=== PATIENT | female | born 1990 | race Caucasian/White ===

== ENCOUNTER 2018-05-04 17:15 | Observation (INO) | payer MEDICAID, OTHER ==
--- NOTE | 2018-05-04 17:50 | C.PDOC ---
History Of Present Illness 28 y/o female, with history of diabetes and ari syndrome, presents to ED complaining of pain to her right perirectal area for the last few days that she states is getting worse. Patient denies any fever, chills, abdominal pain, diarrhea, or trauma. Time Seen by Provider: 05/04/18 17:48 Chief Complaint (Nursing): Abnormal Skin Integrity History Per: Patient History/Exam Limitations: no limitations Onset/Duration Of Symptoms: Days Current Symptoms Are (Timing): Still Present Past Medical History Reviewed: Historical Data, Nursing Documentation, Vital Signs Vital Signs: Last Vital Signs Temp 98.9 F 05/04/18 17:26 Pulse 108 H 05/04/18 17:26 Resp 18 05/04/18 17:26 BP 118/80 05/04/18 17:26 Pulse Ox 98 05/04/18 17:26 - Medical History PMH: Gowrie's Syndrome, Diabetes, Osteoporosis Family History: States: No Known Family Hx - Social History Hx Alcohol Use: Yes Hx Substance Use: No - Immunization History Hx Tetanus Toxoid Vaccination: No Hx Influenza Vaccination: No Hx Pneumococcal Vaccination: No Review Of Systems Constitutional: Negative for: Fever, Chills Gastrointestinal: Negative for: Vomiting, Abdominal Pain, Diarrhea Physical Exam - Physical Exam Appears: Non-toxic, No Acute Distress Skin: Warm, Dry, No Rash, Other (bilateral inguinal and medial thigh area/perine al area erythematous,. warm, irritated appearing. fluctuant abscess right side. ) Head: Atraumatic, Normacephalic Eye(s): bilateral: Normal Inspection Cardiovascular: Rhythm Regular, No Murmur Respiratory: Normal Breath Sounds, No Rales, No Rhonchi, No Wheezing Gastrointestinal/Abdominal: Soft, No Tenderness Rectal: Normal Exam (no internal rectal pain or swelling noted. ), Tenderness (to right proximal perineal area with exquisite tenderness and fluctuance. ), Other (Erythematous perianal inner thigh region and distal to labia on both sides, warm, slight peeling, irritated-appearing skin) Extremity: Bilateral: Atraumatic, Normal Color And Temperature, Normal ROM Neurological/Psych: Oriented x3, Normal Speech, Normal Motor, Normal Sensation, Normal Reflexes Gait: Steady ED Course And Treatment - Laboratory Results Result Diagrams: 05/04/18 19:17 05/04/18 19:17 O2 Sat by Pulse Oximetry: 98 (RA) Pulse Ox Interpretation: Normal Medical Decision Making Medical Decision Making: Plan: --Bloodwork --Urinalysis --IV fluids --Novolin --Novolog --Toradol --Zosyn Impression: 28 y/o Female, with diabetes, with cellulitis and perirectal abscess. Discussed with Dr. Earl who agreed with admission and will consult PMD. [address] Almeida aware of consult. will see patient. Disposition Discussed With Dr.: Kayli Earl Doctor Will See Patient In The: Hospital - Disposition Disposition: HOSPITALIZED Disposition Time: 20:00 Condition: GOOD - Clinical Impression Clinical Impression: Uncontrolled diabetes mellitus, Arlette-rectal abscess, Cellulitis of perianal region - PA / REFRIGERATION SYSTEMS INSTALLER / Resident Statement MD/DO has reviewed & agrees with the documentation as recorded. - Scribe Statement The provider has reviewed the documentation as recorded by the Winibissac Ayala All medical record entries made by the Winibissac were at my direction and personally dictated by me. I have reviewed the chart and agree that the record accurately reflects my personal performance of the history, physical exam, medical decision making, and the department course for this patient. I have also personally directed, reviewed, and agree with the discharge instructions and disposition.
[2018-05-04 19:22] LABS: BASO # 0.2 K/uL (0.0-0.2); BASO % 1.1 % (0.0-2.0); EOS # 0.1 K/uL (0.0-0.7); EOS % 0.7 % (0.0-4.0); HEMOGLOBIN 14.9 g/dL (11.0-16.0); LYMPH # 3.1 K/uL (1.0-4.3); LYMPH % 19.8 % (20.0-40.0); MEAN CELL VOLUME 89.9 fL (81.0-99.0); MEAN CORPUSCULAR HGB CONC 33.4 g/dL (33.0-37.0); MEAN PLATELET VOLUME 10.5 fL (7.2-11.7); MONO # 0.9 K/uL (0.0-0.8); MONO % 5.9 % (0.0-10.0); NEUT # 11.4 K/uL (1.8-7.0); NEUT % 72.5 % (50.0-75.0); NRBC % 0.1 % (0.0-2.0); RBC 4.98 Mil/uL (3.80-5.20); RED CELL DISTRIBUTION WIDTH 12.6 % (11.5-14.5); WHITE BLOOD COUNT 15.7 K/uL (4.8-10.8)
[2018-05-04 19:27] LABS: SQUAMOUS EPITHIAL 12 /hpf (0-5); URINE BILIRUBIN NEGATIVE (NEGATIVE); URINE BLOOD NEGATIVE (NEGATIVE); URINE CLARITY Clear (Clear); URINE COLOR Yellow (YELLOW); URINE GLUCOSE (UA) 3+ mg/dL (Normal); URINE LEUKOCYTE ESTERASE 1+ Leu/uL (Negative); URINE PROTEIN NEGATIVE (NEGATIVE); URINE UROBILINOGEN NORMAL mg/dL (0.2-1.0)
[2018-05-04 19:34] LABS: ALB/GLOB RATIO 1.1 (1.0-2.1); ALBUMIN 4.1 g/dL (3.5-5.0); ALT/SGPT 67 U/L (9-52); AST/SGOT 54 U/L (14-36); BLOOD UREA NITROGEN 24 mg/dL (7-17); CALCIUM 9.4 mg/dl (8.6-10.4); GFR NON-AFRICAN AMERICAN > 60
[2018-05-04] MEDS ORDERED: (Novolin R) Insulin Human Regular 100 units/ml vial SC ONE (19:53)
[2018-05-04] MEDS ORDERED: Sodium Chloride 0.9% 1,000 ML IV ONE (19:54)
[2018-05-04] MEDS ORDERED: Piperacillin/Tazobact 3.375 GM in Sodium Chloride 100 ML IVPB STA (19:54)
[2018-05-04] MEDS ORDERED: (Novolin R) Insulin Human Regular 100 units/ml vial ONE (20:25)
[2018-05-04] MEDS ORDERED: Piperacillin/Tazobact 3.375 gm 100 ML IVPB ONE (20:26)
[2018-05-04] MEDS: Sodium Chloride 0.45% 1,000 ML IV SCH (21:00)
--- NOTE | 2018-05-04 21:50 | CP.PCM.CON ---
History of Present Illness - History of Present Illness History of Present Illness: Surgery consult note for Dr. 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 Patient states she thought it was just a rash but it got worse and was associated with pain with bowel movements. Her boyfriend saw it, found it exquisitely tender. Pt denies any blood in her stool, fevers, chills, diarrhea, constipation, abdominal pain, chest pain, nausea, vomiting. Patient reports she has chronic vaginal discharge and told it is yeast by her maintenance helper utility engineer, and admits to history of vaginal warts in the past that resolved with treatment as well as a "boil" on her buttock that resolved with a cream from her [place] attorney. Patient also reports difficulty controlling her blood glucose, and her sugar is 397 in the ER. Denies any family or personal history of IBD PMH: DM, cushings, vaginal warts, buttock boil, yeast infections PSH: , pituitary surgery, BL adrenalectomies ALL: promethazine Social: denies all substance history Review of Systems - Review of Systems All systems: reviewed and no additional remarkable complaints except (as per HPI) Past Patient History - Infectious Disease Hx of Infectious Diseases: None - Past Medical History & Family History Past Medical History?: Yes Past Family History: Reviewed and not pertinent - Past Social History Smoking Status: Never Smoked - CARDIAC Hx Cardiac Disorders: No - PULMONARY Hx Respiratory Disorders: No - ENDOCRINE/METABOLIC Hx Endocrine Disorders: Yes Hx Diabetes Mellitus Type 2: Yes Other/Comment: PITUITARY GLAND TUMOR - MUSCULOSKELETAL/RHEUMATOLOGICAL Hx Osteoporosis: Yes - PSYCHIATRIC Hx Substance Use: No - SURGICAL HISTORY Hx Surgeries: Yes Hx Section: Yes Other/Comment: Adrenal glands removed - ANESTHESIA Hx Anesthesia: Yes Hx Anesthesia Reactions: No Meds Allergies/Adverse Reactions: Allergies Allergy/AdvReac Type Severity Reaction Status Date / Time promethazine HCl Allergy ANAPHYLAXIS Verified 05/04/18 17:29 [From Phenergan] - Medications Medications: Current Medications Enoxaparin Sodium (Lovenox) 40 mg SC DAILY CHARLINE Sodium Chloride (Sodium Chloride 0.45%) 1,000 mls @ 100 mls/hr IV .Q10H CHARLINE Stop: 05/06/18 01:59 Piperacillin Sod/Tazobactam Sod (Zosyn 3.375 Gm Iv Premix) 3.375 gm in 50 mls @ 100 mls/hr IVPB Q8H CHARLINE; Protocol Vancomycin HCl 1 gm/ Sodium (Chloride) 250 mls @ 166.7 mls/hr IVPB Q24H CHARLINE; Protocol Insulin Aspart (Novolog) 0 unit SC ACHS CHARLINE; Protocol Insulin Aspart (Novolog) 5 unit SC AC CHARLINE Insulin Detemir (Levemir) 10 unit SC HS CHARLINE Physical Exam - Constitutional Appears: Well, Non-toxic, No Acute Distress - Head Exam Head Exam: ATRAUMATIC, NORMOCEPHALIC - Eye Exam Eye Exam: Normal appearance. absent: Conjunctival injection, Scleral icterus - ENT Exam ENT Exam: Mucous Membranes Moist, Normal Oropharynx - Respiratory Exam Respiratory Exam: NORMAL BREATHING PATTERN. absent: Accessory Muscle Use, Respiratory Distress - Cardiovascular Exam Cardiovascular Exam: RRR - GI/Abdominal Exam GI & Abdominal Exam: Soft. absent: Distended, Tenderness - Rectal Exam Rectal Exam: absent: Bloody Stool, Hemorrhoids, Fecal Impaction Additional comments: Area of swelling and erythema to the right of the anus, approximately 4cm across with underlying fluctuance, tender to palpation rectal tone intact, no internal swelling or tenderness to palpation - Extremities Exam Extremities exam: Positive for: pedal pulses present. Negative for: calf tenderness, pedal edema - Neurological Exam Neurological exam: Alert, Oriented x3 - Psychiatric Exam Psychiatric exam: Normal Affect, Normal Mood - Skin Skin Exam: Dry, Normal Color, Warm Results - Vital Signs Recent Vital Signs: Last Vital Signs Temp 98.3 F 05/04/18 21:27 Pulse 86 05/04/18 21:27 Resp 18 05/04/18 21:27 BP 108/72 05/04/18 21:27 Pulse Ox 99 05/04/18 21:27 - Labs Result Diagrams: 05/04/18 19:17 05/04/18 19:17 Labs: Laboratory Results - last 24 hr 05/04/18 05/04/18 05/04/18 19:17 19:17 19:17 WBC 15.7 H RBC 4.98 Hgb 14.9 Hct 44.7 MCV 89.9 MCH 30.0 MCHC 33.4 RDW 12.6 Plt Count 313 MPV 10.5 Neut % (Auto) 72.5 Lymph % (Auto) 19.8 L [place] % (Auto) 5.9 Eos % (Auto) 0.7 Baso % (Auto) 1.1 Neut # (Auto) 11.4 H Lymph # (Auto) 3.1 [place] # (Auto) 0.9 H Eos # (Auto) 0.1 Baso # (Auto) 0.2 Sodium 136 Potassium 4.6 Chloride 94 L Carbon Dioxide 26 Anion Gap 20 BUN 24 H Creatinine 0.7 Est GFR ( Amer) > 60 Est GFR (Non-Af Amer) > 60 Random Glucose 398 H Calcium 9.4 Total Bilirubin 0.6 AST 54 H ALT 67 H Alkaline Phosphatase 171 H Total Protein 7.8 Albumin 4.1 Globulin 3.6 Albumin/Globulin Ratio 1.1 Urine Color Yellow Urine Clarity Clear Urine pH 5.0 Ur Specific [place] 1.029 Urine Protein Negative Urine Glucose (UA) 3+ H Urine Ketones Trace Urine Blood Negative Urine Nitrate Negative Urine Bilirubin Negative Urine Urobilinogen Normal Ur Leukocyte Esterase 1+ H Urine WBC (Auto) 13 H Urine RBC (Auto) 1 Ur Squamous Epith Cells 12 H Assessment & Plan - Assessment and Plan (Free Text) Assessment: 28F with abscess of the perineum Plan: OR tomorrow AM for fidel-anal abscess incision and drainage IV antibiotics NPO after midnight PRN pain medication Glucose control per primary discussed with Dr. Monroy, who agrees with above Alycia Almeida, PGY2
[2018-05-04] MEDS ORDERED: Insulin Detemir 100 units/ml Vial (Levemir) SC SCH (22:00)
[2018-05-04] MEDS ORDERED: (Novolog) Insulin Aspart, Recombinant 100 u/ml 10 ml vial ONE (22:12)
[2018-05-04] MEDS: (Novolog) Insulin Aspart, Recombinant 100 u/ml 10 ml vial SC SCH (22:13)
[2018-05-04] MEDS ORDERED: Insulin Detemir 100 units/ml Vial (Levemir) SC ONE (22:13)
[2018-05-04] MEDS ORDERED: Oxycodone/Acetaminophen 5/325 mg Tab PO PRN (22:38)
[2018-05-04] MEDS ORDERED: Sodium Chloride 0.9% 1,000 ML IV SCH (22:45)
[2018-05-05] MEDS ORDERED: Piperacillin/Tazobact 3.375 gm 100 ML IVPB ONE (04:48)
[2018-05-05] MEDS: Piperacill/Tazo 3.375gm in Dex 3.375 GM/50 ML BAG IVPB SCH ×2 (05:01→11:30)
[2018-05-05 05:06] LABS: BASO # 0.1 K/uL (0.0-0.2); BASO % 0.6 % (0.0-2.0); EOS # 0.2 K/uL (0.0-0.7); EOS % 1.3 % (0.0-4.0); LYMPH % 21.5 % (20.0-40.0); MEAN CELL VOLUME 90.5 fL (81.0-99.0); MEAN CORPUSCULAR HEMOGLOBIN 30.1 pg (27.0-31.0); MEAN CORPUSCULAR HGB CONC 33.2 g/dL (33.0-37.0); MEAN PLATELET VOLUME 10.1 fL (7.2-11.7); MONO # 1.1 K/uL (0.0-0.8); NEUT # 9.6 K/uL (1.8-7.0); NEUT % 68.6 % (50.0-75.0); RBC 4.65 Mil/uL (3.80-5.20); RED CELL DISTRIBUTION WIDTH 12.6 % (11.5-14.5); WHITE BLOOD COUNT 14.1 K/uL (4.8-10.8)
[2018-05-05] MEDS: Sodium Chloride 0.45% 1,000 ML IV SCH ×2 (06:00→16:50)
[2018-05-05 06:15] LABS: INR 1.1; PROTHROMBIN TIME 11.7 SECONDS (9.7-12.2)
[2018-05-05 06:19] LABS: ALB/GLOB RATIO 1.1 (1.0-2.1); ALBUMIN 3.5 g/dL (3.5-5.0); ALT/SGPT 54 U/L (9-52); AST/SGOT 34 U/L (14-36); BLOOD UREA NITROGEN 22 mg/dL (7-17); CALCIUM 8.4 mg/dl (8.6-10.4); GFR NON-AFRICAN AMERICAN > 60
[2018-05-05] MEDS ORDERED: Sodium Chloride 0.45% 500ml 1,000 ML IV ONE (06:25)
[2018-05-05] MEDS: (Novolog) Insulin Aspart, Recombinant 100 u/ml 10 ml vial SC SCH ×4 (07:39→16:40)
[2018-05-05] MEDS ORDERED: Enoxaparin 40 mg Syringe SC SCH (10:00)
[2018-05-05] MEDS ORDERED: Enoxaparin 40 mg Syringe ONE (10:23)
[2018-05-05] MEDS ORDERED: HYDROmorphone 0.5 mg/0.5 ml ISec IVP PRN (10:45)
[2018-05-05] MEDS ORDERED: Midazolam 2 MG/2 ML VIAL ONE (11:18)
[2018-05-05] MEDS ORDERED: Propofol 10 mg/ml Inj (20 ML) ONE (11:18)
--- NOTE | 2018-05-05 11:49 | PCM.SURG1 ---
Surgeon's Initial Post Op Note - Surgeon's Notes Surgeon: Dr. Monroy Dental Coordinator: Dr. Brown Type of Anesthesia: General LMA Anesthesia Administered By: Dr. Gonzalez Pre-Operative Diagnosis: Gluteal Abscess Operative Findings: See opertaive dictation Post-Operative Diagnosis: Gluteal Abscess Operation Performed: Inscision and Drainage of gluteal abscess Specimen/Specimens Removed: none Estimated Blood Loss: EBL {In ML}: 10 Blood Products Given: N/A Drains Used: No Drains Post-Op Condition: Good Date of Surgery/Procedure: 05/05/18 Time of Surgery/Procedure: 11:49
[2018-05-05 16:46] VITALS: BP 99/64; PULSE 86; RESP 20; TEMP 98.5
[2018-05-05 17:17] VITALS: O2SAT 95
--- NOTE | 2018-05-05 18:46 | CP.PCM.HP ---
History of Present Illness - History of Present Illness History of Present Illness: pt admitted with abscess and uncontrolled diabetes Past Patient History - Infectious Disease Hx of Infectious Diseases: None - Past Medical History & Family History Past Medical History?: Yes Past Family History: Reviewed and not pertinent - Past Social History Smoking Status: Never Smoked - CARDIAC Hx Cardiac Disorders: No - PULMONARY Hx Respiratory Disorders: No - ENDOCRINE/METABOLIC Hx Endocrine Disorders: Yes Hx Diabetes Mellitus Type 2: Yes Other/Comment: PITUITARY GLAND TUMOR - MUSCULOSKELETAL/RHEUMATOLOGICAL Hx Osteoporosis: Yes - PSYCHIATRIC Hx Substance Use: No - SURGICAL HISTORY Hx Surgeries: Yes Hx Section: Yes Other/Comment: Adrenal glands removed - ANESTHESIA Hx Anesthesia: Yes Hx Anesthesia Reactions: No Meds Allergies/Adverse Reactions: Allergies Allergy/AdvReac Type Severity Reaction Status Date / Time promethazine HCl Allergy ANAPHYLAXIS Verified 05/04/18 17:29 [From Phenergan] Results - Vital Signs Recent Vital Signs: Last Vital Signs Temp 98.5 F 05/05/18 16:00 Pulse 86 05/05/18 16:00 Resp 20 05/05/18 16:00 BP 99/64 L 05/05/18 16:00 Pulse Ox 95 05/05/18 17:08 - Labs Result Diagrams: 05/05/18 05:03 05/05/18 05:03 Labs: Laboratory Results - last 24 hr 05/04/18 05/04/18 05/04/18 19:17 19:17 19:17 WBC 15.7 H RBC 4.98 Hgb 14.9 Hct 44.7 MCV 89.9 MCH 30.0 MCHC 33.4 RDW 12.6 Plt Count 313 MPV 10.5 Neut % (Auto) 72.5 Lymph % (Auto) 19.8 L [place] % (Auto) 5.9 Eos % (Auto) 0.7 Baso % (Auto) 1.1 Neut # (Auto) 11.4 H Lymph # (Auto) 3.1 [place] # (Auto) 0.9 H Eos # (Auto) 0.1 Baso # (Auto) 0.2 PT INR APTT Sodium 136 Potassium 4.6 Chloride 94 L Carbon Dioxide 26 Anion Gap 20 BUN 24 H Creatinine 0.7 Est GFR ( Amer) > 60 Est GFR (Non-Af Amer) > 60 Random Glucose 398 H Hemoglobin A1c Calcium 9.4 Phosphorus Magnesium Total Bilirubin 0.6 AST 54 H ALT 67 H Alkaline Phosphatase 171 H Total Protein 7.8 Albumin 4.1 Globulin 3.6 Albumin/Globulin Ratio 1.1 TSH 3rd Generation Urine Color Yellow Urine Clarity Clear Urine pH 5.0 Ur Specific [place] 1.029 Urine Protein Negative Urine Glucose (UA) 3+ H Urine Ketones Trace Urine Blood Negative Urine Nitrate Negative Urine Bilirubin Negative Urine Urobilinogen Normal Ur Leukocyte Esterase 1+ H Urine WBC (Auto) 13 H Urine RBC (Auto) 1 Ur Squamous Epith Cells 12 H 05/05/18 05/05/18 05/05/18 05:03 05:03 05:03 WBC 14.1 H RBC 4.65 Hgb 14.0 Hct 42.0 MCV 90.5 MCH 30.1 MCHC 33.2 RDW 12.6 Plt Count 265 MPV 10.1 Neut % (Auto) 68.6 Lymph % (Auto) 21.5 [place] % (Auto) 8.0 Eos % (Auto) 1.3 Baso % (Auto) 0.6 Neut # (Auto) 9.6 H Lymph # (Auto) 3.0 [place] # (Auto) 1.1 H Eos # (Auto) 0.2 Baso # (Auto) 0.1 PT INR APTT Sodium 137 Potassium 4.4 Chloride 105 Carbon Dioxide 21 L Anion Gap 15 BUN 22 H Creatinine 0.7 Est GFR ( Amer) > 60 Est GFR (Non-Af Amer) > 60 Random Glucose 234 H Hemoglobin A1c 13.7 H Calcium 8.4 L Phosphorus 3.9 Magnesium 2.1 Total Bilirubin 0.6 AST 34 ALT 54 H Alkaline Phosphatase 136 H D Total Protein 6.7 Albumin 3.5 Globulin 3.2 Albumin/Globulin Ratio 1.1 TSH 3rd Generation 1.69 Urine Color Urine Clarity Urine pH Ur Specific [place] Urine Protein Urine Glucose (UA) Urine Ketones Urine Blood Urine Nitrate Urine Bilirubin Urine Urobilinogen Ur Leukocyte Esterase Urine WBC (Auto) Urine RBC (Auto) Ur Squamous Epith Cells 05/05/18 06:01 WBC RBC Hgb Hct MCV MCH MCHC RDW Plt Count MPV Neut % (Auto) Lymph % (Auto) [place] % (Auto) Eos % (Auto) Baso % (Auto) Neut # (Auto) Lymph # (Auto) [place] # (Auto) Eos # (Auto) Baso # (Auto) PT 11.7 INR 1.1 APTT 25 Sodium Potassium Chloride Carbon Dioxide Anion Gap BUN Creatinine Est GFR ( Amer) Est GFR (Non-Af Amer) Random Glucose Hemoglobin A1c Calcium Phosphorus Magnesium Total Bilirubin AST ALT Alkaline Phosphatase Total Protein Albumin Globulin Albumin/Globulin Ratio TSH 3rd Generation Urine Color Urine Clarity Urine pH Ur Specific [place] Urine Protein Urine Glucose (UA) Urine Ketones Urine Blood Urine Nitrate Urine Bilirubin Urine Urobilinogen Ur Leukocyte Esterase Urine WBC (Auto) Urine RBC (Auto) Ur Squamous Epith Cells
--- NOTE | 2018-05-05 18:48 | CP.PCM.DIS ---
Provider - Provider Date of Admission: 05/04/18 19:56 Attending physician: Kayli Earl MD Time Spent in preparation of Discharge (in minutes): 30 Hospital Course - Lab Results Lab Results: Most Recent Lab Values WBC 14.1 K/uL (4.8-10.8) H 05/05/18 05:03 RBC 4.65 Mil/uL (3.80-5.20) 05/05/18 05:03 Hgb 14.0 g/dL (11.0-16.0) 05/05/18 05:03 Hct 42.0 % (34.0-47.0) 05/05/18 05:03 MCV 90.5 fL (81.0-99.0) 05/05/18 05:03 MCH 30.1 pg (27.0-31.0) 05/05/18 05:03 MCHC 33.2 g/dL (33.0-37.0) 05/05/18 05:03 RDW 12.6 % (11.5-14.5) 05/05/18 05:03 Plt Count 265 K/uL (130-400) 05/05/18 05:03 MPV 10.1 fL (7.2-11.7) 05/05/18 05:03 Neut % (Auto) 68.6 % (50.0-75.0) 05/05/18 05:03 Lymph % (Auto) 21.5 % (20.0-40.0) 05/05/18 05:03 [place] % (Auto) 8.0 % (0.0-10.0) 05/05/18 05:03 Eos % (Auto) 1.3 % (0.0-4.0) 05/05/18 05:03 Baso % (Auto) 0.6 % (0.0-2.0) 05/05/18 05:03 Neut # (Auto) 9.6 K/uL (1.8-7.0) H 05/05/18 05:03 Lymph # (Auto) 3.0 K/uL (1.0-4.3) 05/05/18 05:03 [place] # (Auto) 1.1 K/uL (0.0-0.8) H 05/05/18 05:03 Eos # (Auto) 0.2 K/uL (0.0-0.7) 05/05/18 05:03 Baso # (Auto) 0.1 K/uL (0.0-0.2) 05/05/18 05:03 PT 11.7 SECONDS (9.7-12.2) 05/05/18 06:01 INR 1.1 05/05/18 06:01 APTT 25 SECONDS (21-34) 05/05/18 06:01 Sodium 137 mmol/L (132-148) 05/05/18 05:03 Potassium 4.4 mmol/L (3.6-5.2) 05/05/18 05:03 Chloride 105 mmol/L (98-107) 05/05/18 05:03 Carbon Dioxide 21 mmol/L (22-30) L 05/05/18 05:03 Anion Gap 15 (10-20) 05/05/18 05:03 BUN 22 mg/dL (7-17) H 05/05/18 05:03 Creatinine 0.7 mg/dL (0.7-1.2) 05/05/18 05:03 Est GFR ( Amer) > 60 05/05/18 05:03 Est GFR (Non-Af Amer) > 60 05/05/18 05:03 Random Glucose 234 mg/dL (65-105) H 05/05/18 05:03 Hemoglobin A1c 13.7 % (4.2-6.5) H 05/05/18 05:03 Calcium 8.4 mg/dl (8.6-10.4) L 05/05/18 05:03 Phosphorus 3.9 mg/dL (2.5-4.5) 05/05/18 05:03 Magnesium 2.1 mg/dL (1.6-2.3) 05/05/18 05:03 Total Bilirubin 0.6 mg/dL (0.2-1.3) 05/05/18 05:03 AST 34 U/L (14-36) 05/05/18 05:03 ALT 54 U/L (9-52) H 05/05/18 05:03 Alkaline Phosphatase 136 U/L (38-126) H D 05/05/18 05:03 Total Protein 6.7 g/dL (6.3-8.3) 05/05/18 05:03 Albumin 3.5 g/dL (3.5-5.0) 05/05/18 05:03 Globulin 3.2 gm/dL (2.2-3.9) 05/05/18 05:03 Albumin/Globulin Ratio 1.1 (1.0-2.1) 05/05/18 05:03 TSH 3rd Generation 1.69 mIU/L (0.46-4.68) 05/05/18 05:03 Urine Color Yellow (YELLOW) 05/04/18 19:17 Urine Clarity Clear (Clear) 05/04/18 19:17 Urine pH 5.0 (5.0-8.0) 05/04/18 19:17 Ur Specific [place] 1.029 (1.003-1.030) 05/04/18 19:17 Urine Protein Negative mg/dL (NEGATIVE) 05/04/18 19:17 Urine Glucose (UA) 3+ mg/dL (Normal) H 05/04/18 19:17 Urine Ketones Trace mg/dL (NEGATIVE) 05/04/18 19:17 Urine Blood Negative (NEGATIVE) 05/04/18 19:17 Urine Nitrate Negative (NEGATIVE) 05/04/18 19:17 Urine Bilirubin Negative (NEGATIVE) 05/04/18 19:17 Urine Urobilinogen Normal mg/dL (0.2-1.0) 05/04/18 19:17 Ur Leukocyte Esterase 1+ Taryn/uL (Negative) H 05/04/18 19:17 Urine WBC (Auto) 13 /hpf (0-5) H 05/04/18 19:17 Urine RBC (Auto) 1 /hpf (0-3) 05/04/18 19:17 Ur Squamous Epith Cells 12 /hpf (0-5) H 05/04/18 19:17 - Hospital Course Hospital Course: PT was admitted and started on abx. PT was seen by surgeon and mack I and Lena of abscess PT refused to state in the hospital past today. Discharge Exam - Head Exam Head Exam: ATRAUMATIC, NORMOCEPHALIC - Eye Exam Eye Exam: Normal appearance - ENT Exam ENT Exam: Mucous Membranes Moist - Respiratory Exam Respiratory Exam: Clear to PA & Lateral (wound intact) - Cardiovascular Exam Cardiovascular Exam: REGULAR RHYTHM, RRR, +S1, +S2. absent: JVD Discharge Plan - Follow Up Plan Condition: GOOD
--- NOTE | 2018-05-05 23:13 | OP ---
PROCEDURE DATE: 05/05/2018 ATTENDING PHYSICIAN: Tyree Monroy MD PATTERN DRUM MAKER: Bertram Brown DO, PGY-3. ANESTHESIA ADMINISTERED: Trinidad Mark MD PREOPERATIVE DIAGNOSIS: Gluteal abscess. POSTOPERATIVE DIAGNOSIS: Gluteal abscess. PROCEDURE: Incision and drainage of gluteal abscess. ANESTHESIA: General LMA. 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 The patient notes that she has had multiple of these in the past, they have all been drained; however, at this time, it got worse and became exquisitely tender to palpation. She came to the emergency department where a gluteal abscess was noted. DESCRIPTION OF PROCEDURE: After all consents were signed and all operative intervention and alternatives were explained, the patient was taken to the operating room where she was placed in the lithotomy position. A time-out was conducted. Everyone agreed this is the correct patient and the correct procedure and laterality was identified. An incision was made over the area of maximal fluctuant using a #15 blade. An incision was made perpendicular to that as well in order to make a cruciate incision, roughly 4 to 5 mL of purulent drainage was expressed. The wound was explored using a Sharyn clamp to break up all loculations. At the inside, the wound was packed and packing was removed for 6 passes in order to clean out the abscess cavity. The abscess was then packed using 2-inch sterile iodoform packing and the wound was covered with 4 x 4's. The patient was then returned to the supine position. The procedure was tolerated well. All counts were reported as correct. The patient awoke from anesthesia without issues and was taken to the PACU in stable condition. Bertram Brown DO Tyree Monroy MD
== END 2018-05-05 19:33 | disposition home or self-care (01) ==
LOC: C.ER 17:15 → C.9E 19:56 → C.3T 05-05 16:11
PROVIDERS: ADMIT Internal Medicine; ATTEND Internal Medicine
DX: L02.31 Cutaneous abscess of buttock (principal); M81.0 Age-related osteoporosis without current pathological fracture; E24.9 Cushing's syndrome, unspecified; E11.65 Type 2 diabetes mellitus with hyperglycemia
CPT/HCPCS: 10060; 80053; 81001; 83036; 83735; 84100; 84443; 85025; 85610; 85730; 87040; 87086; 96360; 96365; 96372; 96374; G0378; J1170; J1885; J2250; J2405; J2543; J2704; J3010; J7030; J7050

== ENCOUNTER 2018-09-26 17:12 | Inpatient (IN) | payer OTHER ==
--- NOTE | 2018-09-26 17:46 | C.PDOC ---
History Of Present Illness 28 y/o female with one male sexual partner c/o vaginal pain x 3 days, feels like 'someone punched her down there', c/o feeling bumps, and bumps hurt when urine touches skin. no hx herpes, no hx sti, pt seen by Dr Olmstead 3 months ago for routine pap. no vaginal discharge. 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 pt has hx of genital warts, does not feel the same. Time Seen by Provider: 09/26/18 17:39 Chief Complaint (Nursing): Female Genitourinary History Per: Patient History/Exam Limitations: no limitations Onset/Duration Of Symptoms: Days (3) Current Symptoms Are (Timing): Worse Severity: Moderate Quality Of Discomfort: "Pain" Associated Symptoms: Urinary Symptoms. denies: Fever, Chills, Nausea, Vomiting Past Medical History Reviewed: Historical Data, Nursing Documentation, Vital Signs Vital Signs: Last Vital Signs Temp 98.5 F 09/26/18 17:19 Pulse 101 H 09/26/18 17:19 Resp 20 09/26/18 17:19 BP 115/78 09/26/18 17:19 Pulse Ox 98 09/26/18 17:19 - Medical History PMH: [place]'s Syndrome, Diabetes, Osteoporosis Family History: States: Unknown Family Hx - Social History Hx Alcohol Use: Yes Hx Substance Use: No - Immunization History Hx Tetanus Toxoid Vaccination: No Hx Influenza Vaccination: No Hx Pneumococcal Vaccination: No Review Of Systems Constitutional: Negative for: Fever, Chills Cardiovascular: Negative for: Chest Pain Respiratory: Negative for: Cough Gastrointestinal: Negative for: Nausea, Vomiting, Abdominal Pain Genitourinary: Positive for: Dysuria, Frequency, Pelvic Pain, Rash. Negative for: Vaginal Discharge, Vaginal Bleeding Skin: Positive for: Rash (labia bilateral) Neurological: Negative for: Weakness, Numbness Physical Exam - Physical Exam Appears: Non-toxic, No Acute Distress Skin: Warm, Dry Head: Atraumatic, Tenderness Eye(s): bilateral: Normal Inspection Neck: Supple Respiratory: No Decreased Breath Sounds, No Wheezing Gastrointestinal/Abdominal: Soft, No Tenderness, No Distention, No Guarding, No Rebound Pelvic: No Normal External Exam (swollen appearing external labia bilaterally, each with multiple tender bumps (cross between pustule and vesicle), with erythema to bilateal . ), No Vaginal Bleeding, Vaginal Discharge (whitish beige scant bubbly looking discharge. ), No Cervical Motion Tenderness, No Cervix Open, No Adnexal Tenderness, Other (areas of bilateral erythema in perineal area consitent with candidal infection, with 2.5 cm fissure in skin on right side) Extremity: No Tenderness, No Swelling Neurological/Psych: Oriented x3, Normal Speech, Normal Cognition ED Course And Treatment - Laboratory Results Result Diagrams: 09/26/18 18:42 09/26/18 18:42 O2 Sat by Pulse Oximetry: 98 Medical Decision Making Medical Decision Making: ecommerce project manager exam chaperoned by MARANDA Calzada Labs ordered and reviewed. Patient with elevated glucose level. Case discussed with Dr. Earl, who will admit the patient to her service. Dr. Harris UROLOGIST PHYSICIAN consult. Disposition - Disposition Forms: [employer] ([place])
[2018-09-26 18:09] LABS: SQUAMOUS EPITHIAL 6 /hpf (0-5); URINE BACTERIA RARE (<OCC); URINE BILIRUBIN NEGATIVE (NEGATIVE); URINE BLOOD NEGATIVE (NEGATIVE); URINE CLARITY Clear (Clear); URINE COLOR Yellow (YELLOW); URINE GLUCOSE (UA) 3+ mg/dL (Normal); URINE LEUKOCYTE ESTERASE NEG Leu/uL (Negative); URINE PROTEIN NEGATIVE (NEGATIVE); URINE UROBILINOGEN NORMAL mg/dL (0.2-1.0)
[2018-09-26 18:52] LABS: BASO # 0.1 K/uL (0.0-0.2); EOS # 0.1 K/uL (0.0-0.7); EOS % 0.9 % (0.0-4.0); HEMOGLOBIN 15.3 g/dL (11.0-16.0); MEAN CORPUSCULAR HEMOGLOBIN 29.7 pg (27.0-31.0); MEAN CORPUSCULAR HGB CONC 32.3 g/dL (33.0-37.0); MEAN PLATELET VOLUME 10.6 fL (7.2-11.7); MONO # 0.9 K/uL (0.0-0.8); MONO % 7.1 % (0.0-10.0); NEUT # 8.4 K/uL (1.8-7.0); RBC 5.15 Mil/uL (3.80-5.20); RED CELL DISTRIBUTION WIDTH 12.7 % (11.5-14.5); WHITE BLOOD COUNT 12.6 K/uL (4.8-10.8)
[2018-09-26 19:19] LABS: ALB/GLOB RATIO 1.4 (1.0-2.1); ALBUMIN 4.2 g/dL (3.5-5.0); ALT/SGPT 28 U/L (9-52); AST/SGOT 21 U/L (14-36); BLOOD UREA NITROGEN 26 mg/dL (7-17); CALCIUM 10.3 mg/dl (8.6-10.4); GFR NON-AFRICAN AMERICAN > 60
[2018-09-26] MEDS ORDERED: (Novolin R) Insulin Human Regular 100 units/ml vial SC ONE (19:36)
[2018-09-26] MEDS ORDERED: Sodium Chloride 0.9% 1,000 ML IV ONE (19:36)
[2018-09-26] MEDS ORDERED: cefTRIAXone IV 1 gm in Dextros 50 ML IVPB STA (19:38)
[2018-09-26] MEDS ORDERED: Sodium Chloride 0.9% 1,000 ML ONE (19:56)
[2018-09-26] MEDS ORDERED: (Novolin R) Insulin Human Regular 100 units/ml vial ONE (20:04)
[2018-09-26] MEDS ORDERED: Dextrose 50% SYRINGE Inj (50 ml) IV PRN (20:12)
[2018-09-26] MEDS ORDERED: Glucagon Recombinant 1 mg Inj IM PRN (20:12)
[2018-09-26] MEDS: Sodium Chloride 0.45% 1,000 ML IV SCH (21:30)
[2018-09-26] MEDS: (Novolog) Insulin Aspart, Recombinant 100 u/ml 10 ml vial SC SCH (21:45)
[2018-09-26] MEDS ORDERED: Insulin Detemir 100 units/ml Vial (Levemir) SC SCH (22:00)
[2018-09-26] MEDS ORDERED: INSULIN DEGLUDEC 10 UNIT SQ SCH ×2 (22:00)
[2018-09-27 07:38] VITALS: RESP 20; O2SAT 97
[2018-09-27] MEDS: (Novolog) Insulin Aspart, Recombinant 100 u/ml 10 ml vial SC SCH ×7 (08:20→22:02)
[2018-09-27] MEDS: Sodium Chloride 0.45% 1,000 ML IV SCH ×2 (08:37→22:04)
[2018-09-27] MEDS: Pantoprazole 40 mg EC Tab PO SCH (10:01)
[2018-09-27] MEDS: Enoxaparin 40 mg Syringe SC SCH ×2 (10:02→10:36)
[2018-09-27] MEDS ORDERED: Insulin Detemir 100 units/ml Vial (Levemir) SC SCH (11:51)
--- NOTE | 2018-09-27 12:01 | CP.PCM.HP ---
History of Present Illness - History of Present Illness History of Present Illness: cc; vulva pain HPI: 28 y/o female with one male sexual partner c/o vaginal pain x 3 days, feels like 'someone punched her down there', c/o feeling bumps, and bumps hurt when urine touches skin. no hx herpes, no hx std, pt seen by Dr Olmstead 3 months ago for routine pap. no vaginal discharge. Pt states she has not been taking her insulin regularly. In the past she has been treated with vulva abscess. Pt denies fever, sob or chest pain PMH Diabetes Bryan's sp surgery with recurrance Social rebeca drugs Present on Admission - Present on Admission Any Indicators Present on Admission: No Review of Systems - Constitutional Constitutional: absent: Anorexia, Chills - EENT Eyes: absent: Blurred Vision - Cardiovascular Cardiovascular: absent: Chest Pain, Dyspnea on Exertion, Edema - Respiratory Respiratory: absent: Cough, Dyspnea, Hemoptysis, Wheezing - Gastrointestinal Gastrointestinal: absent: Constipation, Diarrhea - Genitourinary Genitourinary: absent: Change in Urinary Stream - Reproductive: Female Reproductive:Female: Other (vulva lessions) Past Patient History - Infectious Disease Hx of Infectious Diseases: None - Past Medical History & Family History Past Medical History?: Yes - Past Social History Smoking Status: Never Smoked - CARDIAC Hx Cardiac Disorders: No - PULMONARY Hx Respiratory Disorders: No - ENDOCRINE/METABOLIC Hx Endocrine Disorders: Yes Hx Diabetes Mellitus Type 2: Yes Other/Comment: PITUITARY GLAND TUMOR - MUSCULOSKELETAL/RHEUMATOLOGICAL Hx Falls: No Hx Osteoporosis: Yes - GENITOURINARY/GYNECOLOGICAL Other/Comment: hx of genital warts - PSYCHIATRIC Hx Substance Use: No - SURGICAL HISTORY Hx Surgeries: Yes Hx Section: Yes Other/Comment: Adrenal glands removed - ANESTHESIA Hx Anesthesia: Yes Hx Anesthesia Reactions: No Hx Malignant Hyperthermia: No Has any member of the family had a problem w/ anesthesia?: No Meds Allergies/Adverse Reactions: Allergies Allergy/AdvReac Type Severity Reaction Status Date / Time promethazine HCl Allergy ANAPHYLAXIS Verified 09/26/18 17:20 [From Phenergan] Physical Exam - Constitutional Appears: Non-toxic - Eye Exam Eye Exam: Normal appearance - ENT Exam ENT Exam: Mucous Membranes Moist - Respiratory Exam Respiratory Exam: Clear to Auscultation Bilateral, NORMAL BREATHING PATTERN. absent: Wheezes - Cardiovascular Exam Cardiovascular Exam: REGULAR RHYTHM, RRR, +S1, +S2. absent: JVD - GI/Abdominal Exam GI & Abdominal Exam: Normal Bowel Sounds - Neurological Exam Neurological exam: Alert, Oriented x3 - Psychiatric Exam Psychiatric exam: Normal Affect - Skin Skin Exam: Normal Color (pt has pim point papules in labias and some less that 4mm opened, no discharge) Results - Vital Signs Recent Vital Signs: Last Vital Signs Temp 98.3 F 09/27/18 07:34 Pulse 84 09/27/18 07:34 Resp 20 09/27/18 07:34 BP 111/75 09/27/18 07:34 Pulse Ox 97 09/27/18 07:34 - Labs Result Diagrams: 09/26/18 18:42 09/26/18 18:42 Labs: Laboratory Results - last 24 hr 09/26/18 09/26/18 09/26/18 17:52 18:42 18:42 WBC 12.6 H RBC 5.15 Hgb 15.3 Hct 47.3 H MCV 92.0 MCH 29.7 MCHC 32.3 L RDW 12.7 Plt Count 282 MPV 10.6 Neut % (Auto) 67.0 Lymph % (Auto) 24.0 [place] % (Auto) 7.1 Eos % (Auto) 0.9 Baso % (Auto) 1.0 Neut # (Auto) 8.4 H Lymph # (Auto) 3.0 [place] # (Auto) 0.9 H Eos # (Auto) 0.1 Baso # (Auto) 0.1 Sodium 136 Potassium 5.0 Chloride 98 Carbon Dioxide 27 Anion Gap 17 BUN 26 H Creatinine 0.7 Est GFR ( Amer) > 60 Est GFR (Non-Af Amer) > 60 POC Glucose (mg/dL) Random Glucose 481 H* D Calcium 10.3 Total Bilirubin 0.4 AST 21 ALT 28 Alkaline Phosphatase 176 H D Total Protein 7.2 Albumin 4.2 Globulin 3.0 Albumin/Globulin Ratio 1.4 Urine Color Yellow Urine Clarity Clear Urine pH 5.0 Ur Specific [place] 1.033 H Urine Protein Negative Urine Glucose (UA) 3+ H Urine Ketones Negative Urine Blood Negative Urine Nitrate Negative Urine Bilirubin Negative Urine Urobilinogen Normal Ur Leukocyte Esterase Neg Urine WBC (Auto) 4 Urine RBC (Auto) 1 Ur Squamous Epith Cells 6 H Urine Bacteria Rare 09/26/18 09/27/18 09/27/18 21:28 07:59 11:02 WBC RBC Hgb Hct MCV MCH MCHC RDW Plt Count MPV Neut % (Auto) Lymph % (Auto) [place] % (Auto) Eos % (Auto) Baso % (Auto) Neut # (Auto) Lymph # (Auto) [place] # (Auto) Eos # (Auto) Baso # (Auto) Sodium Potassium Chloride Carbon Dioxide Anion Gap BUN Creatinine Est GFR ( Amer) Est GFR (Non-Af Amer) POC Glucose (mg/dL) 264 H 191 H 227 H Random Glucose Calcium Total Bilirubin AST ALT Alkaline Phosphatase Total Protein Albumin Globulin Albumin/Globulin Ratio Urine Color Urine Clarity Urine pH Ur Specific [place] Urine Protein Urine Glucose (UA) Urine Ketones Urine Blood Urine Nitrate Urine Bilirubin Urine Urobilinogen Ur Leukocyte Esterase Urine WBC (Auto) Urine RBC (Auto) Ur Squamous Epith Cells Urine Bacteria Assessment & Plan - Assessment and Plan (Free Text) Assessment: Uncontrolled diabetes labia lessions painful admit for flluids insulin activity leader eval emperic abx culture for herpes and blood
[2018-09-27] MEDS: Acyclovir 5% Oint (15 gm) EXT SCH ×3 (14:19→22:00)
--- NOTE | 2018-09-27 17:07 | CP.PCM.CON ---
<Verna Sherman - Last Filed: 09/27/18 17:55> History of Present Illness - History of Present Illness History of Present Illness: OBGYN Consult Note for Dr. Harris CC: vulvar pain x 3 days HPI: 28 year old female with PMHx of DM and Bryan's disease presents to the ER with vulvar pain x 3 days. Patient has had a history of rashes and yeast infections before, but this time patient states that it feels different since it is painful, not itchy. Patient states that it feels like someone is punching her vagina. It hurts the most when there is friction on it, such as wiping herself with toilet paper and walking. Pain is relieved when she spreads her legs out. Patient was prescribed acyclovir 5 grams QID ointment, which she tried today and said it has decreased some of the pain. Acyclovir was given by her primary care doctor, who visited her in the ER and recommended OBGYN consult while she put her on acyclovir ppx. Patient endorses a history of genital warts several years ago and denies history of HSV vesicles vaginally, but states that the warts did not feel this way. She also endorses a baseline discoloration of her vulva/labia (purple/white), which is present. Patient denies fever, chills, sweats, nausea, vomiting. Patient thinks that she tends to have worse rashes the more uncontrolled her blood glucose is and also when her life gets more stressful, which she thinks both is going on now. Patient sexually active with her long time boyfriend for 13 years without protection. She has one child with him explained in OB hx. She and him are monogamous from her understanding. Of note, patient was in the ER 05/04 with right anal pain with a gluteal abscess. I&D performed by gen surg Dr. Monroy. Exam was tender to palpation, 4 cm swell/erythema, and fluctuant per report. LOIN PULLER hx: Patient is unsure about any abn'l pap smears but denies ever having colposcopies or any special LOIN PULLER procedures. Menarche at 7 y/o. Periods have been every month lasting 3-4 days with moderate flow until she was around 18 y/o. 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 OB hx: . One living female who will turn 1 years old in a month. Born via CS. PMHx: Diabetes, Bryan's pituitary tumor. The latter was diagnosed in 2013 PSHx: adrenal gland removal in Jul 2014. Patient states she still has increased hormone level after the removal, so hormonal secretion might be elsewhere in the body. FHx: grandfather with DM, grandmother with breast cancer diagnosed about 70 years of age and is still living. Denies other family hx of cancer. SocHx: Denies EtOH, tob, and illicit drugs now and in the past. 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 Home meds: insulin 10 units TID, insulin 22 units qhs Allergies: Phenergan Past Patient History - Infectious Disease Hx of Infectious Diseases: None - Past Medical History & Family History Past Medical History?: Yes - Past Social History Smoking Status: Never Smoked - CARDIAC Hx Cardiac Disorders: No - PULMONARY Hx Respiratory Disorders: No - ENDOCRINE/METABOLIC Hx Endocrine Disorders: Yes Hx Diabetes Mellitus Type 2: Yes Other/Comment: PITUITARY GLAND TUMOR - MUSCULOSKELETAL/RHEUMATOLOGICAL Hx Falls: No Hx Osteoporosis: Yes - GENITOURINARY/GYNECOLOGICAL Other/Comment: hx of genital warts - PSYCHIATRIC Hx Substance Use: No - SURGICAL HISTORY Hx Surgeries: Yes Hx Section: Yes Other/Comment: Adrenal glands removed - ANESTHESIA Hx Anesthesia: Yes Hx Anesthesia Reactions: No Hx Malignant Hyperthermia: No Has any member of the family had a problem w/ anesthesia?: No Meds Allergies/Adverse Reactions: Allergies Allergy/AdvReac Type Severity Reaction Status Date / Time promethazine HCl Allergy ANAPHYLAXIS Verified 09/26/18 17:20 [From Phenergan] - Medications Medications: Current Medications Acyclovir (Zovirax 5% Oint) 5 gm EXT QID [facility] Last Admin: 09/27/18 14:19 Dose: 1 applic Dextrose (Dextrose 50% Inj) 0 ml IV STAT PRN; Protocol PRN Reason: Hypoglycemia Protocol Dextrose (Glutose 15) 0 gm PO ONCE PRN; Protocol PRN Reason: Hypoglycemia Protocol Enoxaparin Sodium (Lovenox) 40 mg SC DAILY [facility] Last Admin: 09/27/18 10:36 Dose: Not Given Glucagon (Glucagen Diagnostic Kit) 0 mg IM STAT PRN; Protocol PRN Reason: Hypoglycemia Protocol Sodium Chloride (Sodium Chloride 0.45%) 1,000 mls @ 75 mls/hr IV .[id number] [facility] Last Admin: 09/27/18 08:37 Dose: 75 mls/hr Ceftriaxone Sodium 1 gm/ (Sodium Chloride) 100 mls @ 100 mls/hr IVPB DAILY [facility]; Protocol Last Admin: 09/27/18 10:02 Dose: 100 mls/hr Dextrose (Dextrose 5% In Water 1000 Ml) 1,000 mls @ 0 mls/hr IV .Q0M PRN; Protocol PRN Reason: Hypoglycemia Protocol Ibuprofen (Motrin Tab) 600 mg PO Q6 PRN PRN Reason: Pain, moderate (4-7) Insulin Aspart (Novolog) 0 unit SC ACHS [facility]; Protocol Last Admin: 09/27/18 12:05 Dose: 3 units Insulin Aspart (Novolog) 5 unit SC TID [facility] Last Admin: 09/27/18 14:18 Dose: 5 units Insulin Detemir (Levemir) 14 unit SC HS [facility] Ketorolac Tromethamine (Toradol) 30 mg IVP Q8 PRN PRN Reason: Pain, moderate (4-7) Pantoprazole Sodium (Protonix Ec Tab) 40 mg PO DAILY [facility] Last Admin: 09/27/18 10:01 Dose: 40 mg Pneumococcal Polyvalent Vaccine (Pneumovax 23 Vaccine) 0.5 ml IM .ONCE ONE Stop: 09/28/18 10:01 Physical Exam - Constitutional Appears: Well, Non-toxic - Head Exam Head Exam: ATRAUMATIC, NORMAL INSPECTION - Eye Exam Eye Exam: Normal appearance - Neck Exam Neck exam: Positive for: Normal Inspection - Respiratory Exam Respiratory Exam: Clear to Auscultation Bilateral, NORMAL BREATHING PATTERN - Cardiovascular Exam Cardiovascular Exam: REGULAR RHYTHM - Exam Additional comments: Vulva and labia are purple-white in color, a few small vesicles on labia minora. Skin is smooth but tender to palpation. Inguinal folds also with same color hue. - Neurological Exam Neurological exam: Alert, Oriented x3 - Psychiatric Exam Psychiatric exam: Normal Affect, Normal Mood - Skin Skin Exam: Rash, Vesicles (1mm few vesicles on labia minora) Additional comments: see exam Results - Vital Signs Recent Vital Signs: Last Vital Signs Temp 98.9 F 09/27/18 16:16 Pulse 85 09/27/18 16:16 Resp 20 09/27/18 16:16 BP 109/74 09/27/18 16:16 Pulse Ox 97 09/27/18 16:16 - Labs Result Diagrams: 09/26/18 18:42 09/26/18 18:42 Labs: Laboratory Results - last 24 hr 09/26/18 09/26/18 09/26/18 17:52 18:42 18:42 WBC 12.6 H RBC 5.15 Hgb 15.3 Hct 47.3 H MCV 92.0 MCH 29.7 MCHC 32.3 L RDW 12.7 Plt Count 282 MPV 10.6 Neut % (Auto) 67.0 Lymph % (Auto) 24.0 [place] % (Auto) 7.1 Eos % (Auto) 0.9 Baso % (Auto) 1.0 Neut # (Auto) 8.4 H Lymph # (Auto) 3.0 [place] # (Auto) 0.9 H Eos # (Auto) 0.1 Baso # (Auto) 0.1 Sodium 136 Potassium 5.0 Chloride 98 Carbon Dioxide 27 Anion Gap 17 BUN 26 H Creatinine 0.7 Est GFR ( Amer) > 60 Est GFR (Non-Af Amer) > 60 POC Glucose (mg/dL) Random Glucose 481 H* D Calcium 10.3 Total Bilirubin 0.4 AST 21 ALT 28 Alkaline Phosphatase 176 H D Total Protein 7.2 Albumin 4.2 Globulin 3.0 Albumin/Globulin Ratio 1.4 Urine Color Yellow Urine Clarity Clear Urine pH 5.0 Ur Specific [place] 1.033 H Urine Protein Negative Urine Glucose (UA) 3+ H Urine Ketones Negative Urine Blood Negative Urine Nitrate Negative Urine Bilirubin Negative Urine Urobilinogen Normal Ur Leukocyte Esterase Neg Urine WBC (Auto) 4 Urine RBC (Auto) 1 Ur Squamous Epith Cells 6 H Urine Bacteria Rare 09/26/18 09/27/18 09/27/18 21:28 07:59 11:02 WBC RBC Hgb Hct MCV MCH MCHC RDW Plt Count MPV Neut % (Auto) Lymph % (Auto) [place] % (Auto) Eos % (Auto) Baso % (Auto) Neut # (Auto) Lymph # (Auto) [place] # (Auto) Eos # (Auto) Baso # (Auto) Sodium Potassium Chloride Carbon Dioxide Anion Gap BUN Creatinine Est GFR ( Amer) Est GFR (Non-Af Amer) POC Glucose (mg/dL) 264 H 191 H 227 H Random Glucose Calcium Total Bilirubin AST ALT Alkaline Phosphatase Total Protein Albumin Globulin Albumin/Globulin Ratio Urine Color Urine Clarity Urine pH Ur Specific [place] Urine Protein Urine Glucose (UA) Urine Ketones Urine Blood Urine Nitrate Urine Bilirubin Urine Urobilinogen Ur Leukocyte Esterase Urine WBC (Auto) Urine RBC (Auto) Ur Squamous Epith Cells Urine Bacteria 09/27/18 15:57 WBC RBC Hgb Hct MCV MCH MCHC RDW Plt Count MPV Neut % (Auto) Lymph % (Auto) [place] % (Auto) Eos % (Auto) Baso % (Auto) Neut # (Auto) Lymph # (Auto) [place] # (Auto) Eos # (Auto) Baso # (Auto) Sodium Potassium Chloride Carbon Dioxide Anion Gap BUN Creatinine Est GFR ( Amer) Est GFR (Non-Af Amer) POC Glucose (mg/dL) 161 H Random Glucose Calcium Total Bilirubin AST ALT Alkaline Phosphatase Total Protein Albumin Globulin Albumin/Globulin Ratio Urine Color Urine Clarity Urine pH Ur Specific [place] Urine Protein Urine Glucose (UA) Urine Ketones Urine Blood Urine Nitrate Urine Bilirubin Urine Urobilinogen Ur Leukocyte Esterase Urine WBC (Auto) Urine RBC (Auto) Ur Squamous Epith Cells Urine Bacteria Assessment & Plan - Assessment and Plan (Free Text) Assessment: 28 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 vulvar pain -likely HSV due to clinical presentation of pain, patient's stress causing dormant virus to become active, and small vesicles on labia -recommend patient to call and check labs for HSV, if negative, would have been sexually transmitted last 2 years -continue treatment with acyclovir oinment, recommend adding PO ayclovir -f/u blood and genital cultures with Dr. Olmstead as outpatient case discussed with Dr. Steven Sherman PGY1 <Krystin Harris - Last Filed: 09/27/18 19:06> Meds - Medications Medications: Current Medications Acyclovir (Zovirax 5% Oint) 5 gm EXT QID [facility] Last Admin: 09/27/18 17:22 Dose: 1 applic Acyclovir (Zovirax) 400 mg PO TID [facility]; Protocol Dextrose (Dextrose 50% Inj) 0 ml IV STAT PRN; Protocol PRN Reason: Hypoglycemia Protocol Dextrose (Glutose 15) 0 gm PO ONCE PRN; Protocol PRN Reason: Hypoglycemia Protocol Enoxaparin Sodium (Lovenox) 40 mg SC DAILY [facility] Last Admin: 09/27/18 10:36 Dose: Not Given Glucagon (Glucagen Diagnostic Kit) 0 mg IM STAT PRN; Protocol PRN Reason: Hypoglycemia Protocol Sodium Chloride (Sodium Chloride 0.45%) 1,000 mls @ 75 mls/hr IV .[id number] [facility] Last Admin: 09/27/18 08:37 Dose: 75 mls/hr Ceftriaxone Sodium 1 gm/ (Sodium Chloride) 100 mls @ 100 mls/hr IVPB DAILY [facility]; Protocol Last Admin: 09/27/18 10:02 Dose: 100 mls/hr Dextrose (Dextrose 5% In Water 1000 Ml) 1,000 mls @ 0 mls/hr IV .Q0M PRN; Protocol PRN Reason: Hypoglycemia Protocol Ibuprofen (Motrin Tab) 600 mg PO Q6 PRN PRN Reason: Pain, moderate (4-7) Insulin Aspart (Novolog) 0 unit SC ACHS [facility]; Protocol Last Admin: 09/27/18 17:18 Dose: 2 units Insulin Aspart (Novolog) 5 unit SC TID [facility] Last Admin: 09/27/18 17:19 Dose: 5 units Insulin Detemir (Levemir) 14 unit SC HS [facility] Ketorolac Tromethamine (Toradol) 30 mg IVP Q8 PRN PRN Reason: Pain, moderate (4-7) Pantoprazole Sodium (Protonix Ec Tab) 40 mg PO DAILY [facility] Last Admin: 09/27/18 10:01 Dose: 40 mg Pneumococcal Polyvalent Vaccine (Pneumovax 23 Vaccine) 0.5 ml IM .ONCE ONE Stop: 09/28/18 10:01 Results - Vital Signs Recent Vital Signs: Last Vital Signs Temp 98.9 F 09/27/18 16:16 Pulse 85 09/27/18 16:16 Resp 20 09/27/18 16:16 BP 109/74 09/27/18 16:16 Pulse Ox 97 09/27/18 16:16 - Labs Result Diagrams: 09/26/18 18:42 09/26/18 18:42 Labs: Laboratory Results - last 24 hr 09/26/18 09/26/18 09/26/18 18:42 18:42 21:28 WBC 12.6 H RBC 5.15 Hgb 15.3 Hct 47.3 H MCV 92.0 MCH 29.7 MCHC 32.3 L RDW 12.7 Plt Count 282 MPV 10.6 Neut % (Auto) 67.0 Lymph % (Auto) 24.0 [place] % (Auto) 7.1 Eos % (Auto) 0.9 Baso % (Auto) 1.0 Neut # (Auto) 8.4 H Lymph # (Auto) 3.0 [place] # (Auto) 0.9 H Eos # (Auto) 0.1 Baso # (Auto) 0.1 Sodium 136 Potassium 5.0 Chloride 98 Carbon Dioxide 27 Anion Gap 17 BUN 26 H Creatinine 0.7 Est GFR ( Amer) > 60 Est GFR (Non-Af Amer) > 60 POC Glucose (mg/dL) 264 H Random Glucose 481 H* D Calcium 10.3 Total Bilirubin 0.4 AST 21 ALT 28 Alkaline Phosphatase 176 H D Total Protein 7.2 Albumin 4.2 Globulin 3.0 Albumin/Globulin Ratio 1.4 09/27/18 09/27/18 09/27/18 07:59 11:02 15:57 WBC RBC Hgb Hct MCV MCH MCHC RDW Plt Count MPV Neut % (Auto) Lymph % (Auto) [place] % (Auto) Eos % (Auto) Baso % (Auto) Neut # (Auto) Lymph # (Auto) [place] # (Auto) Eos # (Auto) Baso # (Auto) Sodium Potassium Chloride Carbon Dioxide Anion Gap BUN Creatinine Est GFR ( Amer) Est GFR (Non-Af Amer) POC Glucose (mg/dL) 191 H 227 H 161 H Random Glucose Calcium Total Bilirubin AST ALT Alkaline Phosphatase Total Protein Albumin Globulin Albumin/Globulin Ratio Assessment & Plan - Assessment and Plan (Free Text) Assessment: Assessment Multiple sores and blister over entire labia, majora and minora and very painful 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 Advise to request result of those labs done while Plan: Order for HSV 1&2 IGG and IGM done but a send out and most likely not resulted by time of discharge OK for discharge when considered ready Pain and discomfort significantly improved since admission, per patient Recommend to continue with topical Zovirax since Will add po Acyclovir 400 mg po TID x 10 days and ordered to start tonite Pt advise regarding need for Safe Sex practices and verbalized understanding Counseled to pelvic rest and to follow up with Dr. 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 - Date & Time Date: 09/27/18 Time: 19:06
[2018-09-27 23:25] VITALS: BP 105/70; PULSE 84; TEMP 98.1
[2018-09-28 07:13] LABS: HEMOGLOBIN 14.8 g/dL (11.0-16.0); MEAN CELL VOLUME 91.4 fL (81.0-99.0); MEAN CORPUSCULAR HEMOGLOBIN 30.5 pg (27.0-31.0); MEAN CORPUSCULAR HGB CONC 33.4 g/dL (33.0-37.0); MEAN PLATELET VOLUME 10.7 fL (7.2-11.7); RBC 4.85 Mil/uL (3.80-5.20); RED CELL DISTRIBUTION WIDTH 12.7 % (11.5-14.5); WHITE BLOOD COUNT 12.3 K/uL (4.8-10.8)
[2018-09-28 07:19] LABS: BLOOD UREA NITROGEN 15 mg/dL (7-17); CALCIUM 9.2 mg/dl (8.6-10.4); GFR NON-AFRICAN AMERICAN > 60
[2018-09-28] MEDS: (Novolog) Insulin Aspart, Recombinant 100 u/ml 10 ml vial SC SCH ×2 (07:51→09:02)
--- NOTE | 2018-09-28 08:34 | CP.PCM.DIS ---
Provider - Provider Date of Admission: 09/26/18 20:13 Attending physician: Kayli Earl MD Consults: 09/26/18 19:54 Physician Consult Routine Comment: Consulting Provider: Aniceto Olmstead Consulting Physician: Aniceto Olmstead Reason for Consult: labial infection 09/27/18 15:03 Physician Consult Routine Comment: Consulting Provider: Krystin Harris Consulting Physician: Krystin Harris Reason for Consult: vaginal infection Time Spent in preparation of Discharge (in minutes): 30 Hospital Course - Lab Results Lab Results: Micro Results 09/26/18 21:06 Blood-Venous Blood Culture - Preliminary NO GROWTH AFTER 24 HOURS 09/26/18 21:06 Blood-Venous Blood Culture - Preliminary NO GROWTH AFTER 24 HOURS Most Recent Lab Values WBC 12.3 K/uL (4.8-10.8) H 09/28/18 06:56 RBC 4.85 Mil/uL (3.80-5.20) 09/28/18 06:56 Hgb 14.8 g/dL (11.0-16.0) 09/28/18 06:56 Hct 44.3 % (34.0-47.0) 09/28/18 06:56 MCV 91.4 fL (81.0-99.0) 09/28/18 06:56 MCH 30.5 pg (27.0-31.0) 09/28/18 06:56 MCHC 33.4 g/dL (33.0-37.0) 09/28/18 06:56 RDW 12.7 % (11.5-14.5) 09/28/18 06:56 Plt Count 268 K/uL (130-400) 09/28/18 06:56 MPV 10.7 fL (7.2-11.7) 09/28/18 06:56 Neut % (Auto) 67.0 % (50.0-75.0) 09/26/18 18:42 Lymph % (Auto) 24.0 % (20.0-40.0) 09/26/18 18:42 [place] % (Auto) 7.1 % (0.0-10.0) 09/26/18 18:42 Eos % (Auto) 0.9 % (0.0-4.0) 09/26/18 18:42 Baso % (Auto) 1.0 % (0.0-2.0) 09/26/18 18:42 Neut # (Auto) 8.4 K/uL (1.8-7.0) H 09/26/18 18:42 Lymph # (Auto) 3.0 K/uL (1.0-4.3) 09/26/18 18:42 [place] # (Auto) 0.9 K/uL (0.0-0.8) H 09/26/18 18:42 Eos # (Auto) 0.1 K/uL (0.0-0.7) 09/26/18 18:42 Baso # (Auto) 0.1 K/uL (0.0-0.2) 09/26/18 18:42 Sodium 133 mmol/L (132-148) 09/28/18 06:56 Potassium 4.5 mmol/L (3.6-5.2) 09/28/18 06:56 Chloride 101 mmol/L (98-107) 09/28/18 06:56 Carbon Dioxide 25 mmol/L (22-30) 09/28/18 06:56 Anion Gap 12 (10-20) 09/28/18 06:56 BUN 15 mg/dL (7-17) 09/28/18 06:56 Creatinine 0.5 mg/dL (0.7-1.2) L 09/28/18 06:56 Est GFR ( Amer) > 60 09/28/18 06:56 Est GFR (Non-Af Amer) > 60 09/28/18 06:56 POC Glucose (mg/dL) 256 mg/dL (65-110) H 09/27/18 20:58 Random Glucose 244 mg/dL (65-105) H D 09/28/18 06:56 Calcium 9.2 mg/dl (8.6-10.4) 09/28/18 06:56 Total Bilirubin 0.4 mg/dL (0.2-1.3) 09/26/18 18:42 AST 21 U/L (14-36) 09/26/18 18:42 ALT 28 U/L (9-52) 09/26/18 18:42 Alkaline Phosphatase 176 U/L (38-126) H D 09/26/18 18:42 Total Protein 7.2 g/dL (6.3-8.3) 09/26/18 18:42 Albumin 4.2 g/dL (3.5-5.0) 09/26/18 18:42 Globulin 3.0 gm/dL (2.2-3.9) 09/26/18 18:42 Albumin/Globulin Ratio 1.4 (1.0-2.1) 09/26/18 18:42 Urine Color Yellow (YELLOW) 09/26/18 17:52 Urine Clarity Clear (Clear) 09/26/18 17:52 Urine pH 5.0 (5.0-8.0) 09/26/18 17:52 Ur Specific [place] 1.033 (1.003-1.030) H 09/26/18 17:52 Urine Protein Negative mg/dL (NEGATIVE) 09/26/18 17:52 Urine Glucose (UA) 3+ mg/dL (Normal) H 09/26/18 17:52 Urine Ketones Negative mg/dL (NEGATIVE) 09/26/18 17:52 Urine Blood Negative (NEGATIVE) 09/26/18 17:52 Urine Nitrate Negative (NEGATIVE) 09/26/18 17:52 Urine Bilirubin Negative (NEGATIVE) 09/26/18 17:52 Urine Urobilinogen Normal mg/dL (0.2-1.0) 09/26/18 17:52 Ur Leukocyte Esterase Neg [place]aryn/uL (Negative) 09/26/18 17:52 Urine WBC (Auto) 4 /hpf (0-5) 09/26/18 17:52 Urine RBC (Auto) 1 /hpf (0-3) 09/26/18 17:52 Ur Squamous Epith Cells 6 /hpf (0-5) H 09/26/18 17:52 Urine Bacteria Rare (<OCC) 09/26/18 17:52 - Hospital Course Hospital Course: PT admited and treated for emperic herpes no evidence of abscess seen by financial reporting director herpes culture done and blood pending upon discharge pt felt better with less pain and no discharge Discharge Exam - Head Exam Head Exam: ATRAUMATIC, NORMAL INSPECTION - Eye Exam Eye Exam: Normal appearance - Respiratory Exam Respiratory Exam: Clear to PA & Lateral - Cardiovascular Exam Cardiovascular Exam: REGULAR RHYTHM, RRR, +S1, +S2. absent: JVD - GI/Abdominal Exam GI & Abdominal Exam: Normal Bowel Sounds Discharge Plan - Follow Up Plan Condition: GOOD
[2018-09-28] MEDS: Enoxaparin 40 mg Syringe SC SCH (09:00)
[2018-09-28] MEDS: Acyclovir 5% Oint (15 gm) EXT SCH (09:01)
[2018-09-28] MEDS: Pantoprazole 40 mg EC Tab PO SCH (09:01)
[2018-09-28] MEDS ORDERED: Pneumococcal 23-Valent Vaccine IM ONE (10:00)
== END 2018-09-28 09:28 | disposition home or self-care (01) ==
LOC: C.ER 17:12 → C.3T 19:35 → OBSVTOIN 20:13
PROVIDERS: ADMIT Internal Medicine; ATTEND Internal Medicine
DX: B00.9 Herpesviral infection, unspecified (principal); E11.65 Type 2 diabetes mellitus with hyperglycemia; E24.9 Cushing's syndrome, unspecified; E89.6 Postprocedural adrenocortical (-medullary) hypofunction; M81.0 Age-related osteoporosis without current pathological fracture; Z91.14 Patient's other noncompliance with medication regimen; Z79.4 Long term (current) use of insulin; Z98.891 History of uterine scar from previous surgery; Z83.3 Family history of diabetes mellitus; Z80.3 Family history of malignant neoplasm of breast